=== PATIENT | female | born 1945 | race Caucasian/White ===

== ENCOUNTER 2019-11-02 00:22 | Inpatient (IN) | payer MEDICARE ==
[~2019-11-02] VITALS: Ht 157.5 cm; Wt 121.8 kg
[2019-11-02] VITALS (7 sets, daily range): BP systolic 132–189; BP diastolic 57–93
[~2019-11-02 00:22] MED LIST: ASPIRIN EC81 M1 PO; B-100 COMPLEX1 EAC1 PO; DIABETA 1.25M1.25 M1; DIABETA 1.25M1.25 M1 PO; FLUZONE 2045 MCG/011; GLUCOSAMINE1000 MG PO; HYDROCODON-ACE1 EAC7 PO; OXYIR5 MG; PNEUMOVAX25 MCG/0.5; POTASSIUM20 PO; SIMVASTATIN40 MG PO; VICTOZA0.6 MG/0.1; VICTOZA0.6 MG/0.1 SUBQ; VITAMIN D400 UNI1 PO; XANAX 0.5 MG0.5 M1 PO
[2019-11-02] MEDS ORDERED: TRESIBA100 UNIT/1 ×2 (00:33→01:09)
[2019-11-02] MEDS ORDERED: OZEMPIC (01:10)
[2019-11-02] MEDS ORDERED: HYDROCODONE (01:10)
[2019-11-02 01:11] LABS: ABSOLUTE LYMPHOCYTES 0.4 thou/uL (0.8-5.3); ABSOLUTE MONOCYTES 0.3 thou/uL (0.0-1.2); ABSOLUTE NEUTROPHILS 3.3 thou/uL (1.6-8.1); BASOPHILS 0.9 %; EOSINOPHILS 0.8 %; HEMATOCRIT 35.5 % (37.0-47.0); HEMOGLOBIN 12.2 gm/dL (12.0-15.0); LYMPHOCYTES 10.5 %; MCH 31.4 pg (26.0-34.0); MCHC 34.3 g/dL (28.0-37.0); MCV 91.7 fL (80.0-100.0); MONOCYTES 7.8 %; MPV 7.9 fl. (7.2-11.1); NUCLEATED RBCS 0 /100WBC; PLATELET COUNT* 106 thou/uL (150-400); RBC 3.87 mil/uL (4.20-5.00); RDW-CV 15.5 % (10.5-14.5); WBC 4.2 thou/uL (4.0-11.0)
[2019-11-02 01:20] LABS: INFLUENZA B ANTIGEN Negative (Negative)
[2019-11-02 01:24] LABS: INR 1.2; PROTIME 12.1 Seconds (9.20-11.50)
[2019-11-02 01:25] LABS: POTASSIUM 2.9 mmol/L (3.5-5.1)
[2019-11-02 01:34] LABS: ALBUMIN 3.2 g/dL (3.4-5.0); TOTAL BILIRUBIN 0.5 mg/dL (<0.1-1.0); TOTAL PROTEIN 7.5 g/dL (6.4-8.2)
[2019-11-02 08:56] LABS: MAGNESIUM 1.7 mg/dL (1.8-2.4); POTASSIUM 3.2 mmol/L (3.5-5.1)
--- NOTE | 2019-11-02 10:17 | EKG ---
[place] [address] ELECTROCARDIOGRAM REPORT Name: YVETTE PEGUERO Room: [place] [address] ADM IN .R.#: [id number] Admission: 11/02/19 Attend Phys: Emmett Limon Discharge: Date of : 41 Report #: [id number] THIS REPORT FOR: //name// [facility] ED Test Date: 2019-11-02 Test Time: 00:30:06 Pat Name: YVETTE PEGUERO Department: Room: [facility] Gender: F Geriatric Nurse: [place] : 1945 Requested By: Shanda Nelson Order Number: [id number] MD: Angel Martines Measurements Intervals Petros Rate: 94 P: 55 SD: 172 QRS: 85 QRSD: 106 T: -89 QT: 327 QTc: 409 Interpretive Statements Sinus rhythm Borderline right axis deviation Low voltage, precordial leads Abnormal R-wave progression, late transition Borderline repolarization abnormality Compared to ECG 10/16/2011 21:46:08 Low QRS voltage now present Electronically Signed On 11-02-2019 10:17:13 [employer] DIRECT[employer] by Angel Martines [email or web address] <ELECTRONICALLY SIGNED> By: Angel Martines MD, FAC 11/02/19 1017 0030 Angel Martines MD, [facility] /EPI
[2019-11-02 16:49] LABS: URINE BILIRUBIN NEGATIVE (Negative); URINE BLOOD NEGATIVE (Negative); URINE CLARITY CLEAR; URINE COLOR YELLOW; URINE GLUCOSE-RANDOM NEGATIVE (Negative); URINE KETONES NEGATIVE (Negative); URINE LEUKOCYTES-REFLEX NEGATIVE (Negative); URINE NITRITE-REFLEX NEGATIVE (Negative); URINE PROTEIN NEGATIVE (Negative); URINE SPECIFIC GRAVITY >= 1.030 (1.005-1.030); URINE UROBILINOGEN 0.2 E.U./dl (0.2-1.0)
[2019-11-03] VITALS: BP 147/48
[2019-11-03 06:32] LABS: ABSOLUTE LYMPHOCYTES 1.1 thou/uL (0.8-5.3); ABSOLUTE MONOCYTES 0.2 thou/uL (0.0-1.2); ABSOLUTE NEUTROPHILS 1.8 thou/uL (1.6-8.1); BASOPHILS 0.7 %; EOSINOPHILS 0.3 %; HEMATOCRIT 29.4 % (37.0-47.0); MCH 31.7 pg (26.0-34.0); MCHC 34.7 g/dL (28.0-37.0); MCV 91.4 fL (80.0-100.0); MONOCYTES 7.3 %; MPV 7.9 fl. (7.2-11.1); NUCLEATED RBCS 0 /100WBC; PLATELET COUNT* 84 thou/uL (150-400); POLYS 57.7 %; RBC 3.22 mil/uL (4.20-5.00); RDW-CV 15.8 % (10.5-14.5); WBC 3.2 thou/uL (4.0-11.0)
[2019-11-03 06:33] LABS: HEMOGLOBIN 10.2 gm/dL (12.0-15.0)
[2019-11-03 06:40] LABS: CALCIUM 7.1 mg/dL (8.5-10.1); CREATININE 1.1 mg/dL (0.6-1.3)
[2019-11-03 07:45] VITALS: BP 124/50
[2019-11-03 16:00] VITALS: BP 141/64
[2019-11-03 22:25] VITALS: BP 185/53
[2019-11-04 05:37] VITALS: BP 160/62
[2019-11-04 06:48] LABS: MAGNESIUM 1.5 mg/dL (1.8-2.4); POTASSIUM 3.6 mmol/L (3.5-5.1)
[2019-11-04 07:40] VITALS: BP 144/50
[2019-11-04] MEDS ORDERED: LEVAQUIN 500 M500 M3 PO (12:49)
[2019-11-04] MEDS ORDERED: TAMIFLU75 MG PO (12:49)
[2019-11-04 14:04] VITALS: BP 144/50
[2019-11-04 16:13] VITALS: BP 144/50
== END 2019-11-04 15:30 | disposition home or self-care (01) | DRG 177 ==
LOC: M.ERS 00:22 → M.TBA-ER 03:02 → M.3W 04:02 → M.2W 15:43 → M.3W 11-03 01:10
PROVIDERS: Emergency Medicine; Internal Medicine; ADMIT Family Medicine
DX: J15.6 Pneumonia due to other Gram-negative bacteria (principal); R65.11 Systemic inflammatory response syndrome (SIRS) of non-infectious origin with acute organ dysfunction; J96.01 Acute respiratory failure with hypoxia; J10.1 Influenza due to other identified influenza virus with other respiratory manifestations; E11.9 Type 2 diabetes mellitus without complications; M79.7 Fibromyalgia; B34.9 Viral infection, unspecified; E87.6 Hypokalemia; E83.42 Hypomagnesemia; M19.90 Unspecified osteoarthritis, unspecified site; Z96.653 Presence of artificial knee joint, bilateral; Z90.710 Acquired absence of both cervix and uterus; Z90.49 Acquired absence of other specified parts of digestive tract; I25.2 Old myocardial infarction; Z79.4 Long term (current) use of insulin; Z79.899 Other long term (current) drug therapy; Z79.82 Long term (current) use of aspirin; Z88.1 Allergy status to other antibiotic agents; Z88.0 Allergy status to penicillin